=== PATIENT | male | born 1985 ===

== ENCOUNTER 2022-05-20 18:06 | Emergency (ER) | payer MEDICAID ==
[~2022-05-20] VITALS: Ht 175.3 cm; Wt 81.8 kg
[2022-05-20 18:49] VITALS: BP 139/80
== END 2022-05-20 20:12 | disposition home or self-care (01) ==
LOC: EMS 18:12
DX: S62.521A Displaced fracture of distal phalanx of right thumb, initial encounter for closed fracture (principal); Z88.0 Allergy status to penicillin; X58.XXXA Exposure to other specified factors, initial encounter; Y93.89 Activity, other specified; Y92.89 Other specified places as the place of occurrence of the external cause; Y99.8 Other external cause status
CPT/HCPCS: 99283